=== PATIENT | male | born 1970 | race African-American/Black ===

== ENCOUNTER 2017-01-18 09:02 | Emergency (ER) | payer MEDICARE, MEDICAID ==
[~2017-01-18] VITALS: Ht 175.3 cm; Wt 56.3 kg
[2017-01-18 09:28] VITALS: BP 107/77
== END 2017-01-18 13:49 | disposition home or self-care (01) ==
LOC: ER 10:15
DX: S01.112D Laceration without foreign body of left eyelid and periocular area, subsequent encounter (principal); X58.XXXD Exposure to other specified factors, subsequent encounter; Y99.8 Other external cause status; Y92.89 Other specified places as the place of occurrence of the external cause
CPT/HCPCS: 99281

== ENCOUNTER 2018-10-16 20:00 | Inpatient (IN) | payer MEDICARE, MEDICAID ==
[~2018-10-16] VITALS: Ht 172.7 cm; Wt 73.9 kg
[2018-10-16] MEDS ORDERED: KETOROLAC 60MG/2ML VIAL IM ONE (22:00)
[2018-10-16 22:57] LABS: HEMATOCRIT. 28.4 % (42.0-52.0); HEMOGLOBIN. 9.3 g/dL (14.0-18.0); MEAN CORPUSCULAR HEMOGLOBIN 28.5 pg (28.0-32.0); MEAN CORPUSCULAR VOLUME 86.7 fL (80.0-94.0); MEAN PLATELET VOLUME 7.8 fl (7.4-10.4); PLATELET 371 x1000/uL (130-400); RED BLOOD CELL COUNT 3.27 mill/uL (4.7-6.1); RED CELL DISTRIBUTION WIDTH 14.6 % (11.6-14.6)
[2018-10-16 23:05] LABS: CHLORIDE 96 mEq/L (98-107)
[2018-10-16 23:27] LABS: PLATELET ESTIMATE NORMAL
[2018-10-17] MEDS ORDERED: LACTATED RINGERS 1,000 ML IV STA (00:44)
[2018-10-17] MEDS ORDERED: KETOROLAC 30MG/ML VIAL IV ONE (01:15)
[2018-10-17 05:40] VITALS: BP 104/66
[2018-10-17 06:29] VITALS: BP 104/66
[2018-10-17] MEDS ORDERED: ONDANSETRON HCL 4MG/2ML INJ IV PRN (07:30)
[2018-10-17] MEDS ORDERED: HYDROMORPHONE HCL/PF 2MG/ML CPJ IV PRN (07:30)
[2018-10-17] MEDS ORDERED: MAGNESIUM/ALUMINUM HYDROXIDE/SIMETHICONE 30ML UDC PO PRN (07:30)
[2018-10-17] MEDS ORDERED: HYDRALAZINE 20MG/ML VIAL IV PRN (07:30)
[2018-10-17] MEDS ORDERED: DIPHENHYDRAMINE 50MG/ML VIAL IV PRN (07:30)
[2018-10-17] MEDS ORDERED: LORAZEPAM 2MG/ML CPJ IV PRN (07:30)
[2018-10-17] MEDS ORDERED: CLONIDINE 0.1MG TABLET PO PRN (07:30)
[2018-10-17] MEDS ORDERED: GUAIFENESIN 200MG/10ML SUGAR FREE UDC PO PRN (07:30)
[2018-10-17] MEDS ORDERED: IPRATROPIUM/ALBUTEROL 0.5-3(2.5)MG/3ML NEB INH PRN (07:30)
[2018-10-17] MEDS ORDERED: HYDRALAZINE 10 MG in SODIUM CHLORIDE 0.9% 50 ML IV PRN (07:30)
[2018-10-17] MEDS ORDERED: DOCUSATE SODIUM 100MG CAPSULE PO PRN (07:30)
[2018-10-17] MEDS ORDERED: HYDROCODONE/ACETAMINOPHEN 5/325MG TABLET PO PRN (07:30)
[2018-10-17 08:00] VITALS: BP 111/77
[2018-10-17] MEDS ORDERED: POTASSIUM CHLORIDE 20MEQ TABLET SR PO NR (09:15)
[2018-10-17] MEDS: SODIUM CHLORIDE 0.9% 1,000 ML IV SCH ×2 (10:11→18:49)
[2018-10-17 12:00] VITALS: BP 109/73
[2018-10-17] MEDS: SODIUM CHLORIDE 0.9% INJ 3ML FLUSH IVF SCH ×2 (14:02→22:00)
[2018-10-17 16:00] VITALS: BP 128/82
[2018-10-17] MEDS: ACETAMINOPHEN 325MG TABLET PO PRN ×2 (17:50→21:43)
[2018-10-17 20:00] VITALS: BP 106/60
[2018-10-18] VITALS: BP 100/57
[2018-10-18 04:00] VITALS: BP 117/78
[2018-10-18 05:59] LABS: CHLORIDE 102 mEq/L (98-107)
[2018-10-18 06:16] LABS: HEMATOCRIT. 25.9 % (42.0-52.0); HEMOGLOBIN. 8.4 g/dL (14.0-18.0); MEAN CORPUSCULAR HEMOGLOBIN 28.5 pg (28.0-32.0); MEAN CORPUSCULAR VOLUME 87.3 fL (80.0-94.0); MEAN PLATELET VOLUME 8.2 fl (7.4-10.4); PLATELET 370 x1000/uL (130-400); RED BLOOD CELL COUNT 2.96 mill/uL (4.7-6.1); RED CELL DISTRIBUTION WIDTH 14.8 % (11.6-14.6)
[2018-10-18] MEDS: SODIUM CHLORIDE 0.9% INJ 3ML FLUSH IVF SCH ×3 (06:30→21:07)
[2018-10-18 08:00] VITALS: BP 111/80
[2018-10-18] MEDS: SODIUM CHLORIDE 0.9% 1,000 ML IV SCH ×2 (08:20→21:07)
[2018-10-18 10:47] LABS: PLATELET ESTIMATE NORMAL
[2018-10-18] MEDS ORDERED: LEVOFLOXACIN 500MG PREMIX 100 ML IV SCH (11:00)
[2018-10-18] MEDS: LEVOFLOXACIN 500MG PREMIX 100 ML IV SCH (11:14)
[2018-10-18 12:00] VITALS: BP 113/70
[2018-10-18] MEDS ORDERED: CALCIUM GLUCONATE 1,000 MG in DEXT 5% WATER 90 ML IV NR (12:30)
[2018-10-18 13:10] LABS: HIV 1 ABS Positive (Negative); HIV 2 ABS Negative (Negative); HIV SCREEN 4G Reactive (Non Reactive); INTERPRETATION HIV-1 Positive (.)
[2018-10-18 16:00] VITALS: BP 114/98
[2018-10-19] VITALS (7 sets, daily range): BP systolic 114–138; BP diastolic 75–97
[2018-10-19] MEDS: SODIUM CHLORIDE 0.9% INJ 3ML FLUSH IVF SCH ×3 (05:57→21:56)
[2018-10-19] MEDS: ACETAMINOPHEN 325MG TABLET PO PRN (05:58)
[2018-10-19] MEDS: LEVOFLOXACIN 500MG PREMIX 100 ML IV SCH (10:03)
[2018-10-19] MEDS: SODIUM CHLORIDE 0.9% 1,000 ML IV SCH ×2 (10:03→21:57)
[2018-10-19] MEDS ORDERED: VANCOMYCIN 1250MG in DEXTROSE 5% WATER 250ML IV NR (15:00)
[2018-10-19 16:14] LABS: HEMATOCRIT 28.1 % (42.0-52.0); HEMOGLOBIN 9.1 g/dL (14.0-18.0); MEAN CORPUSCULAR HEMOGLOBIN 28.5 pg (28.0-32.0); MEAN CORPUSCULAR VOLUME 88.1 fL (80.0-94.0); PLATELET 422 x1000/uL (130-400); RED BLOOD CELL COUNT 3.19 mill/uL (4.7-6.1); RED CELL DISTRIBUTION WIDTH 14.5 % (11.6-14.6)
[2018-10-19] MEDS: MUPIROCIN 2% OINT 22GM NS SCH (21:56)
[2018-10-19] MEDS: VANCOMYCIN 750 MG PREMIX 150 ML IV SCH (22:02)
[2018-10-20] VITALS (7 sets, daily range): BP systolic 116–129; BP diastolic 78–88
[2018-10-20] MEDS: VANCOMYCIN 750 MG PREMIX 150 ML IV SCH ×2 (06:35→14:58)
[2018-10-20] MEDS: SODIUM CHLORIDE 0.9% INJ 3ML FLUSH IVF SCH ×2 (06:36→13:06)
[2018-10-20] MEDS: MUPIROCIN 2% OINT 22GM NS SCH (09:13)
[2018-10-20] MEDS: SODIUM CHLORIDE 0.9% 1,000 ML IV SCH (11:05)
[2018-10-20] MEDS: LEVOFLOXACIN 500MG PREMIX 100 ML IV SCH (11:07)
== END 2018-10-20 16:37 | disposition home or self-care (01) | DRG 815 ==
LOC: ER 20:00 → 6EST 10-17 01:09 → EDBEDREQTM 10-17 01:14 → EDBEDREQ 10-17 01:14 → ENRESERV 10-17 03:34
PROVIDERS: ADMIT Internal Medicine; ATTEND Internal Medicine
DX: R59.0 Localized enlarged lymph nodes (principal); E87.1 Hypo-osmolality and hyponatremia; E44.0 Moderate protein-calorie malnutrition; D64.9 Anemia, unspecified; E87.6 Hypokalemia; D72.819 Decreased white blood cell count, unspecified; Z88.0 Allergy status to penicillin; Z59.0 Homelessness; Z68.25 Body mass index [BMI] 25.0-25.9, adult
CPT/HCPCS: 36415; 80048; 83880; 85027; 86592; 86701; 86702; 86703; 87389; 93971; 96374; 96375; 99285; J0610; J1170; J1200; J1885; J1956; J3370; J7030; J7040; J7060; J7120